=== PATIENT | male | born 1970 ===

== ENCOUNTER 2019-04-26 19:50 | Emergency (ER) | payer SELFPAY ==
[~2019-04-26] VITALS: Ht 175 cm; Wt 90.9 kg
[2019-04-26] MEDS ORDERED: NS IV 1000 ML 1,000 ML IV SCH (21:22)
--- NOTE | 2019-04-26 21:30 | ED General ---
General Chief Complaint: General Problems/Pain Stated Complaint: B/P ISSUES,VERTIGO Nursing Triage Note: Pt to [facility] via [facility] with c/o "vertigo since noon and dental abscess". Pt states "I know my rights and if this tooth is giving me an infection than I can get it surgically removed". Pt BP 134/93. Nursing Sepsis Screen: No Definite Risk Source of Information: Patient Exam Limitations: No Limitations History of Present Illness Date Seen by Provider: Apr 26, 2019 Time Seen by Provider: 20:00 Initial Comments This 49-year-old man presents to the emergency room with complaints of having "vertigo" described as a spinning sensation upon standing starting this morning. He also has some pain in the maxillary areas which he believes is from an abscessed tooth. He says he's been diagnosed with this in the past. EMS reports they have had multiple interactions with him today. Apparently he was blocking the entrance to the library and police were contacted. He is new to the area and is homeless at this time. Vital signs are stable. He does admit to drinking alcohol today. He has a wide array of complaints in addition to the dental issue. He states his throat is mildly sore. He wants to be checked for jorgensen virus because he has been staying in a homeless detention and does not know what type of exposures he may have had there. He is not coughing or short of breath. Patient states he has numerous primary health care providers out of state. He reports a transient right upper quadrant pain earlier today. Patient asks me to not stand too close to him for my own safety as he has PTSD. Allergies and Home Medications Allergies Coded Allergies: No Known Drug Allergies (Unverified , 04/26/19) Home Medications Amoxicillin 500 Mg Capsule, 1,000 MG PO BID Prescribed by: ARMEN HICKS on 04/26/19 1764 Patient Home Medication List Home Medication List Reviewed: Yes Review of Systems Review of Systems Constitutional: no symptoms reported EENTM: see HPI Respiratory: no symptoms reported Cardiovascular: see HPI Gastrointestinal: see HPI Genitourinary: no symptoms reported Musculoskeletal: no symptoms reported Skin: no symptoms reported Psychiatric/Neurological: See HPI Hematologic/Lymphatic: No Symptoms Reported Immunological/Allergic: no symptoms reported Past Lfkhhdb-Nbgpem-Bvfysl Hx Patient Social History Alcohol Use: Rarely Uses Recreational Drug Use: No Smoking Status: Current Everyday Smoker Type Used: Cigarettes 2nd Hand Smoke Exposure: No Recent Foreign Travel: No Contact w/Someone Who Travel: No Recent Infectious Disease Expo: No Recent Hopitalizations: No Physical Abuse: No Sexual Abuse: No Mistreated: No Fear: No Seasonal Allergies Seasonal Allergies: No Past Medical History Surgeries: No Respiratory: No Cardiac: Yes Hypertension Neurological: No Genitourinary: No Gastrointestinal: No Musculoskeletal: No Endocrine: No HEENT: Yes (dental abscesses) Cancer: No Psychosocial: No Integumentary: No Blood Disorders: No Physical Exam Vital Signs Vital Signs - First Documented 04/26/19 19:53 Temp 37.6 Pulse 81 Resp 20 B/P (MAP) 134/93 (107) Pulse Ox 97 O2 Delivery Room Air Capillary Refill : Less Than 3 Seconds Height, Weight, BMI Height: '" Weight: lbs. oz. kg; 29.00 BMI Method: General Appearance: No Apparent Distress, WD/WN HEENT: PERRL/EOMI, TMs Normal, Normal ENT Inspection, Other (oropharynx slightly edematous. No overt dental abscesses.) Neck: Normal Inspection Respiratory: Lungs Clear, Normal Breath Sounds, No Accessory Muscle Use, No Respiratory Distress Cardiovascular: Regular Rate, Rhythm, No Edema, No Murmur Gastrointestinal: Normal Bowel Sounds, Non Tender, Soft Extremity: Normal Inspection, No Pedal Edema Neurologic/Psychiatric: Alert, Oriented x3, No Motor/Sensory Deficits, Normal Mood/Affect, fixed income director II-XII Norm as Tested, Other (patient articulates himself well but has scattered train of thought.) Skin: Normal Color, Warm/Dry Progress/Results/Core Measures Suspected Sepsis Recent Fever Within 48 Hours: No Infection Criteria Present: None New/Unexplained Altered Menta: No Sepsis Screen: No Definite Risk SIRS Temperature: Pulse: 81 Respiratory Rate: 20 Blood Pressure 134 /93 Mean: 107 Results/Orders Lab Results Micro Results My Orders Vital Signs/I&O Capillary Refill : Less Than 3 Seconds Blood Pressure Mean: 107 Progress Note #1: Time: 21:32 Progress Note Patient was seen and examined. Labs and IV fluids were ordered. Progress Note #2: Progress Note Patient's workup revealed no abnormalities and required further treatment or hospitalization. After IV fluids he was able to walk without difficulty. Rapid strep and influenza screenings were negative. Patient was advised to establish with a local primary care provider if he plans to stay in the area. Amoxicillin was provided for her dental pain to initiate treatment while he is trying to get into the dentist. Departure Impression Primary Impression: Pain, dental Additional Impression: Vertigo Disposition: 01 HOME, SELF-CARE Condition: Stable Departure-Patient Inst. Decision time for Depature: 23:06 Referrals: NO,LOCAL PHYSICIAN (PCP) Primary Care Physician [facility] Patient Instructions: Dental Pain, Vertigo (a Type of Dizziness) Add. Discharge Instructions: Drink plenty of clear liquids. Avoid alcohol consumption. If dizziness persists, you may try meclizine purchased [id number]. For dental pain you may take Tylenol (acetaminophen) and/or ibuprofen. Please call the [facility] to schedule medical and dental follow-up. Continue the antibiotics for your dental pain in the meantime. Return to care if you have worsening symptoms. All discharge instructions reviewed with patient and/or family. Voiced understanding. Scripts Amoxicillin (Amoxicillin) 500 Mg Capsule 1000 MG PO BID, #40 CAP 0 Refills Prov: ARMEN VENTURA MD 04/26/19 ARMEN VENTURA MD Apr 26, 2019 21:30
[2019-04-26 21:50] LABS: BASOPHILS % (AUTO) 0 % (0-10); EOSINOPHILS % (AUTO) 1 % (0-10); HEMATOCRIT 44 % (40-54); HEMOGLOBIN 14.9 G/DL (13.3-17.7); LYMPHOCYTES # (AUTO) 0.6 X 10^3 (1.0-4.0); LYMPHOCYTES % (AUTO) 19 % (12-44); MEAN CORPUSCULAR HEMOGLOBIN 28 PG (25-34); MEAN CORPUSCULAR HGB CONC 34 G/DL (32-36); MEAN CORPUSCULAR VOLUME 84 FL (80-99); MEAN PLATELET VOLUME 11.7 FL (7.4-10.4); MONOCYTES # (AUTO) 0.5 X 10^3 (0.0-1.0); MONOCYTES % (AUTO) 15 % (0-12); NEUTROPHILS # (AUTO) 1.9 X 10^3 (1.8-7.8); NEUTROPHILS % (AUTO) 65 % (42-75); PLATELET COUNT 123 10^3/uL (130-400); RED CELL DISTRIBUTION WIDTH 13.3 % (10.0-14.5)
[2019-04-26 22:10] LABS: ALANINE AMINOTRANSFERASE 26 U/L (0-55); ALBUMIN 4.8 GM/DL (3.2-4.5); ALKALINE PHOSPHATASE 68 U/L (40-136); BILIRUBIN,TOTAL 0.4 MG/DL (0.1-1.0); BUN/CREATININE RATIO 9; CALCIUM 9.1 MG/DL (8.5-10.1); CARBON DIOXIDE 19 MMOL/L (21-32); CHLORIDE 102 MMOL/L (98-107); CREATININE SERUM 1.14 MG/DL (0.60-1.30); GFR ESTIMATED > 60; GLUCOSE 78 MG/DL (70-105); POTASSIUM 4.3 MMOL/L (3.6-5.0); SODIUM 138 MMOL/L (135-145); TOTAL PROTEIN 8.1 GM/DL (6.4-8.2)
[2019-04-26 22:28] LABS: BILIRUBIN,URINE NEGATIVE (NEGATIVE); CLARITY,URINE CLEAR; COLOR,URINE YELLOW; GLUCOSE, URINE (UA) NEGATIVE (NEGATIVE); KETONES,URINE NEGATIVE (NEGATIVE); LEUKOCYTE ESTERASE ,URINE NEGATIVE (NEGATIVE); NITRITE,URINE NEGATIVE (NEGATIVE); PH,URINE 5.5 (5-9); PROTEIN,URINE NEGATIVE (NEGATIVE)
[2019-04-26 22:38] LABS: BACTERIA,URINE NEGATIVE /HPF; RBC,URINE 0-2 /HPF; SQUAMOUS EPITHELIAL CELL,UR 0-2 /HPF
[2019-04-26 22:47] LABS: AMPHETAMINE SCREEN, URINE NEGATIVE (NEGATIVE); BARBITURATE SCREEN URINE NEGATIVE (NEGATIVE); BENZODIAZEPINES SCREEN URINE NEGATIVE (NEGATIVE); CANNABINOID SCREEN, URINE NEGATIVE (NEGATIVE); COCAINE SCREEN URINE NEGATIVE (NEGATIVE); METHADONE STAT NEGATIVE (NEGATIVE); METHAMPHETAMINE SCREEN URINE S NEGATIVE (NEGATIVE); OPIATE SCREEN URINE NEGATIVE (NEGATIVE); OXYCODONE STAT NEGATIVE (NEGATIVE); PROPOXYPHENE STAT NEGATIVE (NEGATIVE); TRICYCLIC ANTIDEPRESSANTS SCRE NEGATIVE (NEGATIVE)
[2019-04-26] MEDS ORDERED: AMOX500C2 PO (23:08)
[2019-04-26 23:13] VITALS: BP 140/94
[2019-04-26] MEDS ORDERED: AMOXICILLIN 500 MG (POLYMOX) CAP PO ONE (23:15)
== END 2019-04-26 23:15 | disposition home or self-care (01) ==
LOC: ER 19:56
DX: K08.89 Other specified disorders of teeth and supporting structures (principal); R42 Dizziness and giddiness; F17.210 Nicotine dependence, cigarettes, uncomplicated
CPT/HCPCS: 36415; 80053; 80306; 80320; 81000; 85025; 86141; 87430; 87804

== ENCOUNTER 2019-04-27 13:46 | Emergency (ER) | payer SELFPAY ==
[~2019-04-27] VITALS: Ht 167.7 cm; Wt 92.7 kg
[~2019-04-27 13:46] MED LIST: AMOX500C2 PO
--- NOTE | 2019-04-27 14:25 | ED General ---
General Chief Complaint: Cough/Cold/Flu Symptoms Stated Complaint: COUGHING UP BLOOD;R SIDE WEAKNESS Nursing Triage Note: Pt c/o coughing up blood and a pain in the R side that began a couple days ago and is worsening. Nursing Sepsis Screen: No Definite Risk Source of Information: Patient Exam Limitations: No Limitations History of Present Illness Date Seen by Provider: Apr 27, 2019 Time Seen by Provider: 14:21 Initial Comments To Er with c/o rlq abdominal pain getting worse over the past several days, also reports coughing up blood. He was in the outpatient registration department causing troubles, police were called and he decided he needed to be seen in the emergency room. He was brought here to the emergency room yesterday after police involvement when he was walking the entrance to the library. He would also like an ultrasound to evaluate his renal artery stenosis. Timing/Duration: 1-2 Days Severity: Moderate Allergies and Home Medications Allergies Coded Allergies: No Known Drug Allergies (Unverified , 04/26/19) Home Medications Amoxicillin 500 Mg Capsule, 1,000 MG PO BID Prescribed by: ARMEN HICKS on 04/26/19 6849 Patient Home Medication List Home Medication List Reviewed: Yes Review of Systems Review of Systems Constitutional: see HPI; No chills, No fever EENTM: see HPI; No nose congestion Respiratory: see HPI, hemoptysis Cardiovascular: no symptoms reported Gastrointestinal: RLQ Genitourinary: no symptoms reported Musculoskeletal: no symptoms reported Skin: no symptoms reported Psychiatric/Neurological: No Symptoms Reported Hematologic/Lymphatic: No Symptoms Reported Immunological/Allergic: no symptoms reported Past Wmrpuxc-Mnspaq-Chqhrc Hx Patient Social History Alcohol Use: Occasionally Uses Recreational Drug Use: No Smoking Status: Current Everyday Smoker Type Used: Cigarettes 2nd Hand Smoke Exposure: Yes Recent Foreign Travel: No Contact w/Someone Who Travel: No Recent Infectious Disease Expo: No Recent Hopitalizations: No Seasonal Allergies Seasonal Allergies: No Past Medical History Surgeries: No Respiratory: No Cardiac: Yes Hypertension Neurological: No Genitourinary: No Gastrointestinal: No Musculoskeletal: No Endocrine: No HEENT: Yes (dental abscesses) Cancer: No Psychosocial: No Integumentary: No Blood Disorders: No Physical Exam Vital Signs Vital Signs - First Documented 04/27/19 13:55 Temp 37.2 Pulse 98 Resp 15 B/P (MAP) 141/100 (114) Pulse Ox 99 O2 Delivery Room Air Capillary Refill : Less Than 3 Seconds Height, Weight, BMI Height: '" Weight: lbs. oz. kg; 32.00 BMI Method: General Appearance: No Apparent Distress, WD/WN, Other (there is no palpable depressed skull fracture, no scalp abrasion laceration or hematoma.) Eyes: Bilateral Eye Normal Inspection, Bilateral Eye PERRL, Bilateral Eye EOMI HEENT: PERRL/EOMI, TMs Normal Respiratory: No Accessory Muscle Use, No Respiratory Distress Cardiovascular: Regular Rate, Rhythm, Normal Peripheral Pulses Gastrointestinal: Normal Bowel Sounds, Soft Extremity: Normal Capillary Refill, Normal Inspection Neurologic/Psychiatric: Alert, Oriented x3 Skin: Normal Color, Warm/Dry Progress/Results/Core Measures Suspected Sepsis Recent Fever Within 48 Hours: No Infection Criteria Present: None New/Unexplained Altered Menta: No Sepsis Screen: No Definite Risk SIRS Temperature: Pulse: 98 Respiratory Rate: 15 Laboratory Tests 04/27/19 14:26: White Blood Count 2.7L Blood Pressure 141 /100 Mean: 114 Laboratory Tests 04/27/19 14:26: Creatinine 1.09, Platelet Count 118L, Total Bilirubin 0.4 Results/Orders Lab Results Laboratory Tests Test 04/27/19 14:26 Range/Units White Blood Count 2.7 L 4.3-11.0 10^3/uL Red Blood Count 4.89 4.35-5.85 10^6/uL Hemoglobin 13.8 13.3-17.7 G/DL Hematocrit 41 40-54 % Mean Corpuscular Volume 84 80-99 FL Mean Corpuscular Hemoglobin 28 25-34 PG Mean Corpuscular Hemoglobin Concent 34 32-36 G/DL Red Cell Distribution Width 13.2 10.0-14.5 % Platelet Count 118 L 130-400 10^3/uL Mean Platelet Volume 11.4 H 7.4-10.4 FL Neutrophils (%) (Auto) 67 42-75 % Lymphocytes (%) (Auto) 16 12-44 % Monocytes (%) (Auto) 16 H 0-12 % Eosinophils (%) (Auto) 1 0-10 % Basophils (%) (Auto) 0 0-10 % Neutrophils # (Auto) 1.8 1.8-7.8 X 10^3 Lymphocytes # (Auto) 0.4 L 1.0-4.0 X 10^3 Monocytes # (Auto) 0.4 0.0-1.0 X 10^3 Eosinophils # (Auto) 0.0 0.0-0.3 10^3/uL Basophils # (Auto) 0.0 0.0-0.1 10^3/uL Sodium Level 140 135-145 MMOL/L Potassium Level 3.7 3.6-5.0 MMOL/L Chloride Level 104 98-107 MMOL/L Carbon Dioxide Level 24 21-32 MMOL/L Anion Gap 12 5-14 MMOL/L Blood Urea Nitrogen 13 7-18 MG/DL Creatinine 1.09 0.60-1.30 MG/DL Estimat Glomerular Filtration Rate > 60 BUN/Creatinine Ratio 12 Glucose Level 101 70-105 MG/DL Calcium Level 8.9 8.5-10.1 MG/DL Corrected Calcium 8.7 8.5-10.1 MG/DL Total Bilirubin 0.4 0.1-1.0 MG/DL Aspartate Amino Transf (AST/SGOT) 18 5-34 U/L Alanine Aminotransferase (ALT/SGPT) 22 0-55 U/L Alkaline Phosphatase 62 40-136 U/L Total Protein 7.4 6.4-8.2 GM/DL Albumin 4.2 3.2-4.5 GM/DL My Orders Orders - JESSENIA SWAN [employer] Cbc With Automated Diff (04/27/19 14:18) Comprehensive Metabolic Panel (04/27/19 14:18) Ed Iv/Invasive Line Start (04/27/19 14:18) [facility] Chest/Noang Abd-Pelv W (04/27/19 14:18) Iohexol Injection (Omnipaque 350 Mg/Ml 1 (04/27/19 14:30) Received Contrast (Hold Metformin- Contr (04/27/19 14:30) Ns (Ivpb) (Sodium Chloride 0.9% Ivpb Bag (04/27/19 14:30) Medications Given in ED Current Medications Medications Dose Ordered Sig/Jimy Route Start Time Stop Time Status Last Admin Dose Admin Iohexol 100 ml ONCE ONCE IV 04/27/19 14:30 04/27/19 14:35 DC 04/27/19 14:39 100 ML Sodium Chloride 100 ml ONCE ONCE IV 04/27/19 14:30 04/27/19 14:35 DC 04/27/19 14:39 80 ML Vital Signs/I&O 04/27/19 04/27/19 13:55 14:18 Temp 37.2 Pulse 98 Resp 15 B/P (MAP) 141/100 (114) Pulse Ox 99 O2 Delivery Room Air Room Air Capillary Refill : Less Than 3 Seconds Blood Pressure Mean: 114 Diagnostic Imaging Diagonstic Imaging: Xray Plain Films/CT/US/NM/MRI: chest Comments NAME: GABRIELA [facility] REC#: [id number] PT STATUS: REG ER : 1970 PHYSICIAN: JESSENIA SWAN [employer] ADMIT DATE: 04/27/19/ER Draft Date of Exam:04/27/19 CT [facility] CHEST/NOANG ABD-PELV W INDICATION: Hemoptysis, heavy chest, right flank pain. FINDINGS: CHEST: Ectasia of the ascending aorta measures 4.7 cm maximally. No rupture, mural hemorrhage, or dissection. Its root at the level of the sinus of Valsalva is ectatic at 4.2 cm. No appreciable pulmonary arterial filling defect is found; however, distal branch opacification is technically limited. No pleural or pericardial effusion. No focal pulmonary consolidation. No lung mass. No thoracic lymphadenopathy. No acute chest wall lesion. ABDOMEN/PELVIS: There are right renal cortical cysts. There are bilateral renal cortical cysts. No enhancing or solid renal mass. There is no hydroureteronephrosis. The spleen, adrenals, pancreas, liver, and gallbladder are nonacute. There is no bowel obstruction. There is no evidence for appendicitis or diverticulitis. No ascites, abscess, hematoma, or acute fluid collection. No focal inflammatory process. No adenopathy. The abdominal aorta is patent and nonaneurysmal. The mesenteric branches and renal arteries are patent. IMPRESSION: CHEST: There is cardiomegaly but no tre edema or pneumonia. 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 There is no visualized PE. ABDOMEN/PELVIS: There are renal cysts with no acute appearing abnormality. Patent nonaneurysmal arterial structures. Dictated on workstation # [id number] Dict: 04/27/19 1515 Trans: 04/27/19 1523 [id number] Interpreted by: JIGN GILBERT Electronically signed by: Departure Impression Primary Impression: General medical exam Disposition: 01 HOME, SELF-CARE Condition: Stable Departure-Patient Inst. Decision time for Depature: 14:27 Referrals: YOLANDA RADFORD MD NO,LOCAL PHYSICIAN (PCP) Primary Care Physician Patient Instructions: NO INSTRUCTIONS GIVEN Add. Discharge Instructions: 1. Call [facility] to make an appointment to be seen for further workup. Your ascending aorta, just above your heart is a little enlarged, this just needs to be followed up with repeated ultrasounds per primary care recommendations. All discharge instructions reviewed with patient and/or family. Voiced understanding. JESSENIA SWAN APRN Apr 27, 2019 14:25
[2019-04-27] MEDS ORDERED: HOLD METFORMIN - RECEIVED CONTRAST 20 ML VIAL IV SCH (14:30)
[2019-04-27] MEDS ORDERED: IOHEXOL 350 MG/ML 100 ML (OMNIPAQUE 350) VIAL IV ONE (14:30)
[2019-04-27] MEDS ORDERED: NS 100 ML (IVPB) BAG IV ONE (14:30)
[2019-04-27 14:38] LABS: BASOPHILS % (AUTO) 0 % (0-10); EOSINOPHILS % (AUTO) 1 % (0-10); HEMATOCRIT 41 % (40-54); HEMOGLOBIN 13.8 G/DL (13.3-17.7); LYMPHOCYTES # (AUTO) 0.4 X 10^3 (1.0-4.0); LYMPHOCYTES % (AUTO) 16 % (12-44); MEAN CORPUSCULAR HEMOGLOBIN 28 PG (25-34); MEAN CORPUSCULAR HGB CONC 34 G/DL (32-36); MEAN CORPUSCULAR VOLUME 84 FL (80-99); MEAN PLATELET VOLUME 11.4 FL (7.4-10.4); MONOCYTES # (AUTO) 0.4 X 10^3 (0.0-1.0); MONOCYTES % (AUTO) 16 % (0-12); NEUTROPHILS # (AUTO) 1.8 X 10^3 (1.8-7.8); NEUTROPHILS % (AUTO) 67 % (42-75); PLATELET COUNT 118 10^3/uL (130-400); RED CELL DISTRIBUTION WIDTH 13.2 % (10.0-14.5); WHITE BLOOD COUNT 2.7 10^3/uL (4.3-11.0)
[2019-04-27 14:58] LABS: ALANINE AMINOTRANSFERASE 22 U/L (0-55); ALBUMIN 4.2 GM/DL (3.2-4.5); ALKALINE PHOSPHATASE 62 U/L (40-136); BILIRUBIN,TOTAL 0.4 MG/DL (0.1-1.0); BUN/CREATININE RATIO 12; CALCIUM 8.9 MG/DL (8.5-10.1); CARBON DIOXIDE 24 MMOL/L (21-32); CHLORIDE 104 MMOL/L (98-107); CREATININE SERUM 1.09 MG/DL (0.60-1.30); GFR ESTIMATED > 60; GLUCOSE 101 MG/DL (70-105); POTASSIUM 3.7 MMOL/L (3.6-5.0); SODIUM 140 MMOL/L (135-145); TOTAL PROTEIN 7.4 GM/DL (6.4-8.2)
--- NOTE | 2019-04-27 15:24 | Diagnostic Imaging Report ---
INDICATION: Hemoptysis, heavy chest, right flank pain. FINDINGS: CHEST: Ectasia of the ascending aorta measures 4.7 cm maximally. No rupture, mural hemorrhage, or dissection. Its root at the level of the sinus of Valsalva is ectatic at 4.2 cm. No appreciable pulmonary arterial filling defect is found; however, distal branch opacification is technically limited. No pleural or pericardial effusion. No focal pulmonary consolidation. No lung mass. No thoracic lymphadenopathy. No acute chest wall lesion. ABDOMEN/PELVIS: There are right renal cortical cysts. There are bilateral renal cortical cysts. No enhancing or solid renal mass. There is no hydroureteronephrosis. The spleen, adrenals, pancreas, liver, and gallbladder are nonacute. There is no bowel obstruction. There is no evidence for appendicitis or diverticulitis. No ascites, abscess, hematoma, or acute fluid collection. No focal inflammatory process. No adenopathy. The abdominal aorta is patent and nonaneurysmal. The mesenteric branches and renal arteries are patent. IMPRESSION: CHEST: There is cardiomegaly but no tre edema or pneumonia. 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 There is no visualized PE. ABDOMEN/PELVIS: There are renal cysts with no acute appearing abnormality. Patent nonaneurysmal arterial structures. Dictated by: Dictated on workstation # [id number]
[2019-04-27 15:46] VITALS: BP 135/71
== END 2019-04-27 15:46 | disposition home or self-care (01) ==
LOC: EDUNIT# 13:46 → ER 13:46
DX: R10.31 Right lower quadrant pain (principal); R04.2 Hemoptysis; F17.210 Nicotine dependence, cigarettes, uncomplicated
CPT/HCPCS: 36415; 71275; 74177; 80053; 85025